=== PATIENT | female | born 2000 | race Hispanic/Latino ===

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

== ENCOUNTER 2023-11-18 17:11 | Emergency (ER) | payer SELFPAY ==
[~2023-11-18] VITALS: Ht 154.9 cm; Wt 72.6 kg
[2023-11-18] MEDS ORDERED: KETO10TA2 PO (17:55)
[2023-11-18] MEDS ORDERED: CLIN-141 PO (17:55)
[2023-11-18 19:42] VITALS: BP 113/61; PULSE 72; RESP 14; TEMP 97.9; O2SAT 99
== END 2023-11-18 19:45 | disposition home or self-care (01) ==
LOC: EDH 17:11
DX: R59.0 Localized enlarged lymph nodes (principal); Z79.899 Other long term (current) drug therapy
CPT/HCPCS: 76536